=== PATIENT | male | born 1970 | race Caucasian/White ===

== ENCOUNTER 2025-01-05 20:15 | Emergency (ER) | payer SELFPAY ==
[2025-01-05] MEDS ORDERED: Sodium Chloride 0.9% 10 ML Syringe FLUSH PRN (20:32)
[2025-01-05 20:38] LABS: BASOPHILS ABSOLUTE AUTO 0.1 K/mm3 (0.0-0.2); BASOPHILS PERCENT AUTO 0.6 % (0.0-1.0); EOSINOPHILS ABSOLUTE AUTO 0.1 K/mm3 (0.0-0.4); EOSINOPHILS PERCENT AUTO 1.3 % (0.0-6.0); IMMATURE GRAN ABSOLUTE AUTO 0.01 K/mm3 (0.00-0.05); IMMATURE GRAN PERCENT AUTO 0.1 % (0.0-0.4); LYMPHOCYTES ABSOLUTE AUTO 1.3 K/mm3 (1.0-4.8); LYMPHOCYTES PERCENT AUTO 16.5 % (24.0-44.0); MEAN PLATELET VOLUME 10.0 fl (9.4-12.4); MONOCYTES ABSOLUTE AUTO 0.5 K/mm3 (0.0-0.8); MONOCYTES PERCENT AUTO 6.4 % (0.0-8.0); NEUTROPHILS ABSOLUTE AUTO 6.0 K/mm3 (1.8-7.7); NEUTROPHILS PERCENT AUTO 75.1 % (41.0-71.0); NRBC ABSOLUTE 0.00 (0.00-0.02); NRBC PERCENT 0.0 % (0.0-0.2); PLATELET COUNT,PLT 258 K/mm3 (150-400); RED BLOOD CELL COUNT 5.52 M/mm3 (4.52-5.90); WHITE BLOOD CELL COUNT,WBC 7.96 K/mm3 (3.9-11.3)
[2025-01-05] MEDS: Iopamidol 755 Mg/ML 100 ML Bottle IVPUSH ONE (20:47)
[2025-01-05] MEDS: Sodium Chloride 0.9% 10 ML Syringe FLUSH ONE (20:47)
[2025-01-05 20:52] LABS: INR 0.95
[2025-01-05] MEDS: hydrALAZINE 20 MG/ML SDV IVPUSH ONE (20:52)
[2025-01-05 20:53] LABS: PTT,PARTIAL THROMBOPLSTIN TIME 27.5 SECONDS (21.7-31.4)
[2025-01-05 21:16] LABS: A/G RATIO 1.2 (1-2); BILIRUBIN TOTAL 0.5 mg/dL (0.2-1.0); BLOOD UREA NITROGEN,BUN 18 mg/dL (7-18); CARBON DIOXIDE,CO2 21 mEq/L (21-32); CHLORIDE,CL 104 mEq/L (98-107); CREATININE 1.2 mg/dL (0.7-1.3); EST CRCL DRUG DOSING (CG) 77.68 mL/min; ESTIMATED GFR 71 mL/min (>60); PROTEIN TOTAL,TP 7.7 g/dl (6.4-8.2); SODIUM,NA 142 mEq/L (136-145)
[2025-01-05 21:18] LABS: POTASSIUM,K 3.5 mEq/L (3.5-5.1); TROPONIN I HIGH SENSITIVITY 1138 pg/mL (<=76)
[2025-01-05 21:19] LABS: GLUCOSE RANDOM 128 mg/dL (70-99)
[2025-01-05 21:20] LABS: ETHANOL BLOOD MEDICAL 0.0 gm% (0.00); TSH 3.744 uIU/mL (0.358-3.74)
[2025-01-05 21:21] LABS: T4 FREE 0.84 ng/dL (0.76-1.46)
[2025-01-05 21:25] LABS: ALANINE AMINOTRANSFERASE,ALT 46 U/L (16-63)
[2025-01-05 21:45] LABS: APPEARANCE,URINE CLEAR (Clear); GLUCOSE,URINE NEGATIVE (Negative); OCCULT BLOOD,URINE NEGATIVE (Negative)
[2025-01-05 21:54] LABS: BUPRENORPHINE SCREEN,URINE NEGATIVE (CUTOFF=10); EPITHELIAL CELLS,URINE 0-5 /hpf (0-5); METHADONE SCREEN, URINE NEGATIVE (CUT0FF=200); METHAMPHETAMINES SCREEN, URINE NEGATIVE (CUTOFF=500); OXYCODONE SCREEN,URINE NEGATIVE (CUT0FF=100); THC SCREEN,URINE 20 NG/ML NEGATIVE (CUTOFF=50)
[2025-01-05 21:56] LABS: AMPHETAMINES SCREEN, URINE NEGATIVE (CUTOFF=500)
== END 2025-01-05 23:05 ==
LOC: JD.ED 20:15
DX: I69.392 Facial weakness following cerebral infarction (principal); I16.1 Hypertensive emergency; R79.89 Other specified abnormal findings of blood chemistry
CPT/HCPCS: 36415; 37195; 70450; 70496; 70498; 71045; 80053; 80306; 80307; 81001; 82947; 83735; 83880; 84439; 84443; 84484; 85025; 85610; 85730; 93005; 96361; 96365; 96366; 96375; 99291; 99292; A9270; J0360; J2305; J2404; J3101; J7030; J7050; Q9967; 93010